=== PATIENT | female | born 1975 | race Caucasian/White ===

== ENCOUNTER 2017-09-02 09:04 | Day surgery (SDC) | payer OTHER ==
[~2017-09-02] VITALS: Ht 170.2 cm; Wt 86.0 kg
[~2017-09-02 09:04] MED LIST: CELEXA10 MG PO
[2017-09-02 09:27] VITALS: BP 114/83; PULSE 89
[2017-09-02] MEDS ORDERED: [UNRECOGNIZED DRUG - REMARK] PO (09:27)
[2017-09-02 11:00] VITALS: BP 106/59; PULSE 88; TEMP 98.2
[2017-09-02 11:15] VITALS: BP 91/60; PULSE 83
[2017-09-02 11:30] VITALS: BP 98/58; PULSE 88
[2017-09-02 11:45] VITALS: BP 94/66; PULSE 92
[2017-09-02 14:13] VITALS: BP 110/65; PULSE 91
== END 2017-09-02 11:54 | disposition home or self-care (01) ==
LOC: SDCO 09:04
DX: Z12.11 Encounter for screening for malignant neoplasm of colon (principal); K62.1 Rectal polyp; E78.00 Pure hypercholesterolemia, unspecified; F41.9 Anxiety disorder, unspecified; K92.1 Melena; F17.200 Nicotine dependence, unspecified, uncomplicated; K59.00 Constipation, unspecified; K58.9 Irritable bowel syndrome, unspecified; Z90.49 Acquired absence of other specified parts of digestive tract; Z86.010 Personal history of colon polyps
CPT/HCPCS: J2250; J3010; J7030

== ENCOUNTER 2020-02-01 08:29 | Day surgery (SDC) | payer OTHER ==
[~2020-02-01] VITALS: Ht 167.6 cm; Wt 86.9 kg
[~2020-02-01 08:29] MED LIST changes: +[UNRECOGNIZED DRUG - REMARK] PO
[2020-02-01 09:05] VITALS: BP 120/73; PULSE 87; TEMP 96.7
[2020-02-01] MEDS ORDERED: CELEXA40 MG PO (09:12)
[2020-02-01] MEDS ORDERED: LIPITOR 10MG10 MG PO (09:14)
[2020-02-01 10:25] VITALS: BP 115/89; PULSE 75
--- NOTE | 2020-02-01 10:25 | NUR ---
Patient arrives back to [facility] alert, denies pain or nausea. Patient monitor applied vitals stable. Patient given juice and water.
[2020-02-01 10:40] VITALS: BP 105/85; PULSE 77
--- NOTE | 2020-02-01 10:45 | NUR ---
Patient tolerated juice and water without any nausea. Vitals stable. Patient reports she feels great and is ready to go home.
--- NOTE | 2020-02-01 10:50 | NUR ---
Dismissal instructions gone over with patient. Patient voices understanding and all questions answered.
[2020-02-01 10:55] VITALS: BP 114/81; PULSE 74
--- NOTE | 2020-02-01 11:00 | NUR ---
Patient discharged to private vehicle at patient enterance via wheelchair. Patient's daughter is driving. Patient leaves [facility] staff for services.
== END 2020-02-01 11:00 | disposition home or self-care (01) ==
LOC: SDCO 08:29
DX: Z12.11 Encounter for screening for malignant neoplasm of colon (principal); K62.1 Rectal polyp; Z86.010 Personal history of colon polyps; K58.9 Irritable bowel syndrome, unspecified; K59.00 Constipation, unspecified; E78.00 Pure hypercholesterolemia, unspecified; F41.9 Anxiety disorder, unspecified; E78.5 Hyperlipidemia, unspecified; F17.210 Nicotine dependence, cigarettes, uncomplicated
CPT/HCPCS: J2704; J7120